=== PATIENT | female | born 1985 | race American Indian/Alaskan Native ===

== ENCOUNTER 2017-05-03 15:09 | Emergency (ER) | payer MEDICAID ==
[2017-05-03] MEDS ORDERED: TYLENOL PO ONE (15:33)
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
[2017-05-03 16:46] LABS: Basophils % (Auto) 0.9 % (0.0-1.8); Eosinophils % (Auto) 5.6 % (0.0-4.3); Hematocrit 38.9 % (30.3-42.9); Hemoglobin 13.3 gm/dl (10.1-14.3); Mean Corpuscular HGB Conc 34 % (30-34); Mean Corpuscular Hemoglobin 30 pg (28-32); Mean Corpuscular Volume 88 fl (79-97); Platelet Count 295 K/mm3 (140-440); Red Cell Distribution Width 12.9 % (13.2-15.2); White Blood Count 7.2 K/mm3 (4.5-11.0)
[2017-05-03 17:34] LABS: Bilirubin,Urine NEG (Negative); Blood,Urine NEG (Negative); Ketones,Urine NEG (Negative); Leukocyte Esterase,Urine NEG (Negative); Nitrite,Urine NEG (Negative); Protein,Urine <15 mg/dL mg/dL (Negative); Urobilinogen,Urine < 2.0 mg/dL (<2.0)
[2017-05-03] MEDS ORDERED: SUBLIMAZE IV ONE (17:35)
[2017-05-03] MEDS ORDERED: ZOFRAN IV ONE (17:36)
[2017-05-03] MEDS ORDERED: NACL 0.9% 1000 ML 1,000 ML IV ONE (17:36)
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
[2017-05-03 18:32] LABS: Mucus,Urine 1+ /HPF
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
[2017-05-03 18:46] LABS: INR 0.91 (0.87-1.13)
[2017-05-03 18:51] LABS: Alanine Aminotransferase 18 units/L (7-56); Albumin 3.8 g/dL (3.9-5); Albumin/Globulin Ratio 1.3 %; Alkaline Phosphatase 64 units/L (35-129); Anion Gap 18 mmol/L; BUN/Creatinine Ratio 12; Blood Urea Nitrogen 7 mg/dL (7-17); Carbon Dioxide 25 mmol/L (22-30); Chloride 100.2 mmol/L (98-107); Glucose 83 mg/dL (65-100); Potassium 3.5 mmol/L (3.6-5.0); Sodium 140 mmol/L (137-145); Total Protein 6.7 g/dL (6.3-8.2)
[2017-05-03] MEDS ORDERED: DILAUDID IV ONE (18:59)
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
[2017-05-03 20:50] VITALS: BP 143/93
== END 2017-05-03 20:49 | disposition home or self-care (01) ==
LOC: ED 15:09
DX: S09.8XXA Other specified injuries of head, initial encounter (principal); S39.81XA Other specified injuries of abdomen, initial encounter; J45.909 Unspecified asthma, uncomplicated; F17.200 Nicotine dependence, unspecified, uncomplicated; Z88.8 Allergy status to other drugs, medicaments and biological substances; V43.52XA Car driver injured in collision with other type car in traffic accident, initial encounter; Y93.89 Activity, other specified; Y92.89 Other specified places as the place of occurrence of the external cause; Y99.8 Other external cause status
CPT/HCPCS: 36415; 70450; 74177; 80053; 81001; 84703; 85025; 85610; 85730; 96361; 96374; 96375; 99284; J1170; J2405; J3010; J7030; Q9967